=== PATIENT | female | born 1950 | race American Indian/Alaskan Native ===

== ENCOUNTER 2016-08-20 12:53 | Emergency (ER) | payer MEDICARE ==
[2016-08-20 13:44] VITALS: BP 170/96
--- NOTE | 2016-08-20 14:05 | Emergency Department Report ---
Chief Complaint: Chest Pain Stated Complaint: chest pain Time Seen by Provider: 08/20/16 13:57 - HPI History of Present Illness: 65-year-old female presents today with left-sided chest pain radiating to her back times greater than one month. Patient states that sore to touch. Denies shortness of breath, abdominal pain, nausea, vomiting. - ROS Review of Systems: Per HPI - Exam Vital Signs: Vital Signs 08/20/16 13:28 Temperature 98.0 F Pulse Rate 78 Respiratory 16 Rate Blood Pressure 170/96 O2 Sat by Pulse 98 Oximetry Physical Exam: General: 65-year-old female in no acute distress. Well-developed, well- nourished. CV: Regular rate and rhythm. Lungs: Clear to auscultation bilaterally. Chest wall: Positive for anterior chest wall tenderness MSE screening note: Focused history and physical exam performed. Due to findings the following was ordered: ED Disposition for MSE Condition: Stable Referrals: PRIMARY CARE, [Primary Care Provider] - 3-5 Days
--- NOTE | 2016-08-20 15:13 | XRay Report ---
ROUTINE CHEST, TWO VIEWS: HISTORY: chest pain. The trachea, heart, mediastinal contour, lung mensah and bony thorax are unremarkable. IMPRESSION: Unremarkable chest x-ray.
[2016-08-20 16:32] LABS: Eosinophils % (Auto) 1.7 % (0.0-4.3); Red Blood Count 4.84 M/mm3 (3.65-5.03)
[2016-08-20 19:07] LABS: Basophils % (Auto) 0.5 % (0.0-1.8); Hematocrit 41.2 % (30.3-42.9); Hemoglobin 13.5 gm/dl (10.1-14.3); Mean Corpuscular HGB Conc 33 % (30-34); Mean Corpuscular Hemoglobin 28 pg (28-32); Mean Corpuscular Volume 85 fl (79-97); Platelet Count 298 K/mm3 (140-440); Red Cell Distribution Width 15.9 % (13.2-15.2); White Blood Count 10.5 K/mm3 (4.5-11.0)
[2016-08-20 19:47] LABS: Creatine Kinase MB < 1.0 ng/mL (0.0-4.0)
[2016-08-20 19:50] LABS: Alanine Aminotransferase 20 units/L (7-56); Albumin 4.2 g/dL (3.9-5); Albumin/Globulin Ratio 1.2 %; Alkaline Phosphatase 72 units/L (35-129); Anion Gap 18 mmol/L; Bilirubin,Total 0.5 mg/dL (0.1-1.2); Blood Urea Nitrogen 7 mg/dL (7-17); Calcium 8.7 mg/dL (8.4-10.2); Carbon Dioxide 27 mmol/L (22-30); Chloride 100.2 mmol/L (98-107); Creatine Kinase 75 units/L (30-135); Glucose 104 mg/dL (65-100); Lipase 26 units/L (13-60); Potassium 3.9 mmol/L (3.6-5.0); Sodium 141 mmol/L (137-145); Total Protein 7.6 g/dL (6.3-8.2)
[2016-08-20 19:54] LABS: Bilirubin,Direct < 0.2 mg/dL (0-0.2); Bilirubin,Indirect 0.3 mg/dL
== END 2016-08-21 00:30 | disposition left against medical advice (07) ==
LOC: ED 12:53
DX: R07.9 Chest pain, unspecified (principal); Z53.21 Procedure and treatment not carried out due to patient leaving prior to being seen by health care provider
CPT/HCPCS: 36415; 71020; 80048; 80074; 82550; 82553; 83690; 84484; 85025; 93005; 93010

== ENCOUNTER 2016-08-22 10:15 | Inpatient (IN) | payer MEDICARE ==
[2016-08-22 10:44] LABS: Basophils % (Auto) 0.7 % (0.0-1.8); Hematocrit 39.8 % (30.3-42.9); Hemoglobin 12.9 gm/dl (10.1-14.3); Mean Corpuscular HGB Conc 33 % (30-34); Mean Corpuscular Hemoglobin 28 pg (28-32); Mean Corpuscular Volume 84 fl (79-97); Platelet Count 275 K/mm3 (140-440); Red Blood Count 4.71 M/mm3 (3.65-5.03); Red Cell Distribution Width 15.8 % (13.2-15.2); White Blood Count 8.8 K/mm3 (4.5-11.0)
[2016-08-22 10:58] LABS: Anion Gap 18 mmol/L; Blood Urea Nitrogen 7 mg/dL (7-17); Calcium 8.5 mg/dL (8.4-10.2); Carbon Dioxide 27 mmol/L (22-30); Chloride 104.8 mmol/L (98-107); Glucose 131 mg/dL (65-100); Potassium 4.6 mmol/L (3.6-5.0); Sodium 145 mmol/L (137-145)
[2016-08-22] MEDS ORDERED: ZOFRAN IV ONE (16:38)
[2016-08-22] MEDS ORDERED: MORPHINE IV ONE (16:38)
[2016-08-22] MEDS ORDERED: CATAPRES PO ONE (16:38)
[2016-08-22] MEDS ORDERED: ASPIRIN PO ONE (16:38)
--- NOTE | 2016-08-22 17:05 | Emergency Department Report ---
ED Chest Pain HPI - General Chief Complaint: Chest Pain Stated Complaint: CHEST AND BACK PAIN Time Seen by Provider: 08/22/16 16:27 Source: patient, old records reviewed Mode of arrival: Ambulatory Limitations: No Limitations - History of Present Illness Initial Comments: 65-year-old female with a past medical history of hypothyroidism status post thyroidectomy, elevated cholesterol, and hypertension presents to the hospital complaints of chest pain 1 month. Pain is upper left chest radiating to the back. Described as intermittent aching pain without aggravating or alleviating factors. Rated 8/10 in intensity. Denies associated symptoms including shortness of breath, nausea, vomiting, diaphoresis, calf tenderness, edema, history of PE/DVT, recent travel, smoking history, or family history of CAD. Last stress test was "a long time ago" and greater 5 years ago. Patient does not have a primary care doctor. Patient did not have her medication yesterday or today but is otherwise compliant. Patient presented here August for a left prior to M.D. evaluation. Cardiac enzymes chest x-ray negative at the time Severity scale (0 -10): 5 - Related Data Home Medications Medication Instructions Recorded Confirmed Last Taken AtorvaSTATin [Lipitor] 20 mg PO QHS 08/22/16 08/22/16 Unknown Levothyroxine [Synthroid] 150 mg PO QAM 08/22/16 08/22/16 08/22/16 Metoprolol Tartrate [Lopressor] 50 mg PO QHS 08/22/16 08/22/16 08/19/16 Allergies Allergy/AdvReac Type Severity Reaction Status Date / Time No Known Allergies Allergy Unverified 08/20/16 13:44 ISRAEL score - Israel Score Age > 65: (1) Yes Aspirin use within the Past 7 Days: (0) No 3 or more CAD Risk Factors: (1) Yes 2 or more Angina events in past 24 hrs: (1) Yes Known CAD with more than 50% Stenosis: (0) No Elevated Cardiac Markers: (0) No ST Deviation Greater than 0.5mm: (0) No ISRAEL Score: 3 ED Review of Systems ROS: Stated complaint: CHEST AND BACK PAIN Other details as noted in HPI Comment: All other systems reviewed and negative Other: Constitutional: No fevers chills Eyes: No eye pain visual changes ENT: No ear pain or throat pain Neck: Denies pain Respiratory: Denies cough wheezing shortness of breath Cardiovascular: As per HPI GI: Denies abdominal pain, nausea, vomiting, diarrhea : Denies dysuria Musculoskeletal: Denies back pain Skin: Denies rash, lesions, erythema Neurologic: Denies headache, numbness, weakness Psychiatric: Denies suicidal ideation, hallucinations ED Past Medical Hx - Past Medical History Previous Medical History?: Yes Hx Hypertension: Yes Additional medical history: thyroid disorder; high cholosterol - Surgical History Past Surgical History?: Yes Additional Surgical History: ; thyroid ectomy - Social History Smoking Status: Never Smoker - Medications Home Medications: Home Medications Medication Instructions Recorded Confirmed Last Taken Type AtorvaSTATin [Lipitor] 20 mg PO QHS 08/22/16 08/22/16 Unknown History Levothyroxine [Synthroid] 150 mg PO QAM 08/22/16 08/22/16 08/22/16 History Metoprolol Tartrate [Lopressor] 50 mg PO QHS 08/22/16 08/22/16 08/19/16 History ED Physical Exam - General Limitations: No Limitations - Other Other exam information: General: No limitations, patient is alert in no acute distress Head exam: Atraumatic, normocephalic Eyes exam: Normal appearance, pupils equal reactive to light, extraocular movements intact ENT: Moist mucous membrane, normal oropharynx Neck exam: Normal inspection, full range of motion, no meningismus nontender Respiratory exam: Clear to auscultation bilateral, no wheezes, rales, crackles. Left upper chest wall tenderness the patient states is different from her intermittent chest pain she's been experiencing Cardiovascular: Normal rate and rhythm, normal heart sounds Abdomen: Soft, nondistended, and nontender, with normal bowel sounds, no rebound, or guarding Extremity: Full range of motion normal inspection no deformity, no calf tenderness or edema Back: Normal Inspection, full range of motion, no tenderness Neurologic: Alert, oriented x3, cranial nerves intact, no motor or sensory deficit Psychiatric: normal affect, normal mood Skin: Warm, dry, intact ED Course Vital Signs 08/22/16 08/22/16 08/22/16 10:29 14:45 14:46 Temperature 98.7 F 98.2 F Pulse Rate 72 72 Respiratory 16 20 14 Rate Blood Pressure 174/97 Blood Pressure 189/96 [Left] O2 Sat by Pulse 100 96 99 Oximetry 08/22/16 14:49 Temperature Pulse Rate 75 Respiratory Rate Blood Pressure Blood Pressure [Left] O2 Sat by Pulse Oximetry - Reevaluation(s) Reevaluation #1: 08/22/16 17:15 Aspirin, morphine, Zofran, and clonidine 0.1 mg ordered ED Medical Decision Making - Lab Data Result diagrams: 08/22/16 10:35 08/22/16 10:35 Lab Results 08/22/16 08/22/16 08/22/16 Range/Units 10:35 10:35 13:16 WBC 8.8 (4.5-11.0) K/mm3 RBC 4.71 (3.65-5.03) M/mm3 Hgb 12.9 (10.1-14.3) gm/dl Hct 39.8 (30.3-42.9) % MCV 84 (79-97) fl MCH 28 (28-32) pg MCHC 33 (30-34) % RDW 15.8 H (13.2-15.2) % Plt Count 275 (140-440) K/mm3 Lymph % (Auto) 28.7 (13.4-35.0) % [place] % (Auto) 6.4 (0.0-7.3) % Eos % (Auto) 2.0 (0.0-4.3) % Baso % (Auto) 0.7 (0.0-1.8) % Lymph # 2.5 (1.2-5.4) K/mm3 [place] # 0.6 (0.0-0.8) K/mm3 Eos # 0.2 (0.0-0.4) K/mm3 Baso # 0.1 (0.0-0.1) K/mm3 Seg Neutrophils % 62.2 (40.0-70.0) % Seg Neutrophils # 5.4 (1.8-7.7) K/mm3 Sodium 145 (137-145) mmol/L Potassium 4.6 (3.6-5.0) mmol/L Chloride 104.8 (98-107) mmol/L Carbon Dioxide 27 (22-30) mmol/L Anion Gap 18 mmol/L BUN 7 (7-17) mg/dL Creatinine 0.5 L (0.7-1.2) mg/dL Estimated GFR > 60 ml/min BUN/Creatinine Ratio 14.00 % Glucose 131 H (65-100) mg/dL Calcium 8.5 (8.4-10.2) mg/dL Troponin T < 0.010 < 0.010 (0.00-0.029) ng/mL - EKG Data -: EKG Interpreted by Me (nsr rate 78, non specific st t wave abnl) - Medical Decision Making Overall I believe patient's chest pain is atypical however, patient has cardiac risk factors distress is related 5 years ago. Patient to admit for stress testing to rule out CAD - Differential Diagnosis chest wall pain, NH, unstable angina, PE, dissection, MSK pain Critical Care Time: No Critical care attestation.: If time is entered above; I have spent that time in minutes in the direct care of this critically ill patient, excluding procedure time. ED Disposition Clinical Impression: Chest pain, HTN (hypertension), Elevated cholesterol Disposition: OP ADMITTED IP TO THIS HOSP Is pt being admited?: Yes Does the pt Need Aspirin: Yes Condition: Stable Time of Disposition: 16:49 (Dr Aparicio/hosp)
--- NOTE | 2016-08-22 17:26 | Admit Criteria Form ---
Admission Criteria Documentation: CHEST PAIN Clinical Indications for Admission to Inpatient Care (Place 'X' for any and all applicable criteria): Admission is indicated for chest pain and ANY ONE of the following(1)(2)(3)(4)(5 ): [ ]I. Angina with acute coronary syndrome (Also use Myocardial Infarction or Angina guideline) [ ]II. Hemodynamic instability [X]III. Angina needing acute intervention as indicated by ALL of the following( 11)(12): [X]a) Unstable angina is present as indicated by angina that is ANY ONE of the following: [ ]i) New onset [ ]ii) Nocturnal [X]iii) Prolonged at rest [ ]iv) Progressive [X]b) Angina warrants acute intervention as indicated by ANY ONE of the following: [X]i) Recurrent angina (e.g, not responding as previously to treatment) [ ]ii) Angina at rest or with low-level activities despite initial medical therapy [ ]iii) New or presumably new ST-segment depression on ECG [ ]iv) Signs or symptoms of heart failure (eg, dyspnea, pulmonary edema) [ ]v) New or worsening mitral regurgitation [ ]vi) Hemodynamic instability [ ]vii) Dangerous arrhythmia (eg, sustained ventricular tachycardia) [ ]viii) History of percutaneous coronary intervention within 6 months [ ]ix) History of coronary artery bypass graft surgery [X]x) ISRAEL risk score of 2 or greater[A] [ ]xi) History of Diabetes(14) [ ]xii) High-risk cardiac ischemia findings on noninvasive testing (e.g, echocardiogram, treadmill testing, nuclear scan) [ ]xiii) Chronic renal insufficiency (ie, estimated GFR less than 60 mL/min/1.732m) [ ]xiv) Left ventricular ejection fraction less than 40% [ ]IV. Evidence of [place] (eg, cardiac biomarkers positive, ST-segment elevation on ECG) also use Myocardial Infarction Criteria Form. [ ]V. Pulmonary edema [ ]. Respiratory distress [ ]VII. Chest pain indicative of serious diagnosis other than coronary artery disease (eg, aortic dissection) [ ]VIII. Contraindications and/or Inappropriate clinical situations for Observational Care in patients with Chest Pain, when ANY ONE of the following is required: [ ]a) Patient with risk factor for pulmonary embolism, acute coronary syndrome and myocardial infarction (18) [ ]b) Patient with Pulmonary embolism require an average LOS of 4.3 days, therefore emergency department observation management is inappropriate 18,23 [ ]c) Painful condition/s in the elderly, have the highest rate of recidivism after emergency department observation management (10.8%) 20,21,22 [ ]d) Elevated cardiac biomarker requires intensive and exhaustive care (19) [ ]IX. General contraindications and/or Inappropriate clinical situations for Observational Care in patients with Chest Pain, when ANY ONE of the following is required: [ ]a) Prediction of prolongation of LOS based on ANY ONE of the following may be considered as a contraindication for observational care 2, 3, 4, 5, 6, 7, 8, 9, 10, 11 [ ]i) Age > 65 yrs. [ ]ii) Patient arriving by ambulance [ ]iii) Patient with high acuity [ ]iv) Patient requiring vital sign monitoring [ ]v) Patient on IV medication [ ]b) Systolic blood pressures 180mmHg 3,12 [ ]c) Patient with altered mental status including delirium and other alteration of consciousness, (3) [ ]d) Patient whose discharge disposition will be to a long-term home or rehabilitation home should not be managed in Emergency Department Observation Unit. CMS rule requires 3 days hospital stay before such placement. 3,13 [ ]e) Patient with failure to thrive due to broad array of etiologies 3,16,17 [ ]f) Inability to ambulate 3,14 Extended stay beyond goal length of stay may be needed for (1)(28): [ ]a) Specific condition diagnosed after evaluation (eg, pulmonary embolism, aortic dissection) [ ]b) Unstable angina [ ]c) Continued suspicion of acute coronary syndrome with inability to complete needed cardiac evaluation (eg, patient clinically unable to undergo stress testing) [ ]d) Myocardial infarction (Contents from ANGINA and CHEST PAIN clinical indications for admission to inpatient care have been integrated in this form) The original [employer] content created by [employer] has been revised. The portions of the content which have been revised are identified through the use of italic text or in bold, and [employer] has neither reviewed nor approved the modified material. All other unmodified content is copyright [employer]. Please see references footnoted in the original [employer] edition 2016 Admission Criteria Met: Yes
--- NOTE | 2016-08-22 19:12 | History and Physical Report ---
History of Present Illness Date of examination: 08/22/16 Date of admission: 08/22/16 17:03 Chief complaint: CP History of present illness: Patient is a 65 yo woman with a h/o thyroid d/o s/p thyroidectomy, dlp and htn who presents with progressive worse left sided achy dull moderately intense intermittent radiating to back chest pains that started about 1 month ago, she came to [facility] 2 days ago but left prior to physician evaluation. There is no n /v/diaphoresis, fevers, cough. She denies any shortness of breath. She did passed a gallstone of the four-day fast. Past History Past Medical History: other (as hpi) Past Surgical History: Other (thyroidectomy) Social history: full code. denies: smoking, alcohol abuse, prescription drug abuse, IV drug use Family history: no significant family history Medications and Allergies Allergies Allergy/AdvReac Type Severity Reaction Status Date / Time No Known Allergies Allergy Unverified 08/20/16 13:44 Home Medications Medication Instructions Recorded Confirmed Last Taken Type AtorvaSTATin [Lipitor] 20 mg PO QHS 08/22/16 08/22/16 Unknown History Levothyroxine [Synthroid] 150 mg PO QAM 08/22/16 08/22/16 08/22/16 History Metoprolol Tartrate [Lopressor] 50 mg PO QHS 08/22/16 08/22/16 08/19/16 History Active Meds: Active Medications Aspirin (Baby Aspirin) 81 mg PO QDAY SUNITHA Atorvastatin Calcium (Lipitor) 20 mg PO QHS [facility] Enoxaparin Sodium (Lovenox) 40 mg SUB-Q QDAY SUNITHA Levothyroxine Sodium (Synthroid) 150 mcg PO DAILY@0600 SUNITHA Metoprolol Tartrate (Lopressor) 50 mg PO QHS SUNITHA Review of Systems All systems: negative (as HPI and all other ROS reviewed and negative.) Exam - Physical Exam Narrative exam: GEN: WDWN, NAD, AWAKE, ALERT, ORIENTATED 3 HEENT: NCAT, PERRL, EOMI, OP CLEAR NECK: SUPPLE, NO THYROMEGALY, NO JVD, NO LAD CVS: RRR, NORMAL S1S2 LUNGS/CHEST: CTA B, NORMAL CHEST EXPANSION B, GOOD AIR ENTRY B ABD: SOFT NTND, GBS, NO REBOUND OR GUARDING EXT/SKIN: NO SIGNIFICANT EDEMA OR RASH MSK: FROM X 4 EXTREMITIES NEURO: CN 2-12 GROSSLY INTACT, NO FOCAL DEFICITS PSY: CALM - Constitutional Vitals: Temp Pulse Resp BP Pulse Ox 98.2 F 76 16 175/108 97 08/22/16 14:45 08/22/16 17:41 08/22/16 17:41 08/22/16 17:41 08/22/16 17:41 Results - Labs CBC & Chem 7: 08/22/16 10:35 08/22/16 10:35 - Imaging and Cardiology EKG: image reviewed Assessment and Plan Patient is a 65 yo woman with a h/o thyroid d/o s/p thyroidectomy, dlp and htn who presents with progressive worse left sided achy dull moderately intense intermittent radiating to back chest pains that started about 1 month ago, she came to [facility] 2 days ago but left prior to physician evaluation. There is no n /v/diaphoresis, fevers, cough. She denies any shortness of breath. She did passed a gallstone of the four-day fast. 1. Chest pain: Serial cardiac enzymes, stress test a.m. add aspirin 2. Accelerated hypertension: Beta belem 3. Dyslipidemia: Statins 4. History of Thyroid disorder
[2016-08-22] MEDS ORDERED: BABY ASPIRIN ONE (20:11)
[2016-08-22] MEDS: BABY ASPIRIN PO SCH (20:29)
[2016-08-22] MEDS ORDERED: LOPRESSOR PO SCH (22:00)
[2016-08-23] MEDS ORDERED: SYNTHROID PO SCH (06:00)
[2016-08-23 07:59] LABS: Hematocrit 38.3 % (30.3-42.9); Hemoglobin 12.4 gm/dl (10.1-14.3); Mean Corpuscular HGB Conc 32 % (30-34); Mean Corpuscular Hemoglobin 27 pg (28-32); Mean Corpuscular Volume 84 fl (79-97); Platelet Count 266 K/mm3 (140-440); Red Blood Count 4.57 M/mm3 (3.65-5.03); Red Cell Distribution Width 15.5 % (13.2-15.2); White Blood Count 8.9 K/mm3 (4.5-11.0)
[2016-08-23] MEDS ORDERED: LEXISCAN IV ONE (08:06)
[2016-08-23 08:10] LABS: Blood Urea Nitrogen 9 mg/dL (7-17); Calcium 8.5 mg/dL (8.4-10.2); Carbon Dioxide 28 mmol/L (22-30); Glucose 125 mg/dL (65-100); Potassium 4.2 mmol/L (3.6-5.0); Sodium 144 mmol/L (137-145)
[2016-08-23 08:12] LABS: Anion Gap 16 mmol/L
[2016-08-23 09:58] VITALS: BP 135/75
[2016-08-23] MEDS ORDERED: LOVENOX SUB-Q SCH (10:00)
[2016-08-23] MEDS: BABY ASPIRIN PO SCH (12:09)
--- NOTE | 2016-09-02 08:39 | Query- Chest Pain ---
Jazmyn Harris Date:__09/02/16 Door Paneler/CDS:_Joceline/Jim Basilio Phone#:_[phone] Exercise your independent professional judgment when responding to query. Questions asked do not imply a particular answer is desired or expected. We greatly appreciate your clarification on this issue. Clinical Documentation States: 65 Y/O Female admitted on 08/22/16 with History of thyroid disorder s/p thyroidectomy presents with progressive left sided chest pain radiating to the back. Clinical Findings Show: Stress test negative, troponin within normal limits x3 Please document the etiology of Chest Pain: [ ] Myocardial Infarction [ ] Pneumonia [ ] Mediastinitis [ ] Costochondritis [ ] Pulmonary Embolism [ ] Coronary Artery Disease [ x] GERD [ ] Other: [ ] Comment/Explanation: Present on Admission: [ x] Yes (Y) [ ] Clinically undeterminable (W) [ ] No(N) Please document response in your Progress Notes and/or Discharge Summary and indicate if the condition was present on admission. ALEXANDRA
== END 2016-08-23 18:12 | disposition home or self-care (01) | DRG 392 ==
LOC: ED 10:15 → 4A 17:03
PROVIDERS: ADMIT Internal Medicine; ATTEND Internal Medicine
DX: K21.9 Gastro-esophageal reflux disease without esophagitis (principal); E03.9 Hypothyroidism, unspecified; I10 Essential (primary) hypertension; E78.5 Hyperlipidemia, unspecified; Z90.89 Acquired absence of other organs
CPT/HCPCS: 36415; 78452; 80048; 84484; 85025; 85027; 85379; 93005; 93010; 93017; A9270-GY; A9502; J2270; J2405; J2785

== ENCOUNTER 2020-08-11 12:16 | Emergency (ER) | payer MEDICARE ==
--- NOTE | 2020-08-11 13:13 | XRay Report ---
CHEST PA AND LATERAL VIEWS INDICATION: Chest Pain. COMPARISON: 08/20/2016 FINDINGS: Support devices: None Heart: Normal and unchanged Lungs/Pleura: No acute pulmonary or pleural findings. IMPRESSION: 1. No significant abnormality and no interval change. Signer Name: Jann Burnette MD Signed: 08/11/2020 1:09 PM Workstation Name: [id number]
[2020-08-11 14:20] LABS: Basophils % (Auto) 0.5 % (0.0-1.8); Eosinophils # (Auto) 0.2 K/mm3 (0.0-0.4); Eosinophils % (Auto) 2.8 % (0.0-4.3); Hematocrit 39.4 % (30.3-42.9); Hemoglobin 13.1 gm/dl (10.1-14.3); Lymphocytes % (Auto) 25.4 % (13.4-35.0); Mean Corpuscular HGB Conc 33 % (30-34); Mean Corpuscular Volume 89 fl (79-97); Monocytes # (Auto) 0.5 K/mm3 (0.0-0.8); Monocytes % (Auto) 6.6 % (0.0-7.3); Platelet Count 276 K/mm3 (140-440); Red Cell Distribution Width 15.9 % (13.2-15.2)
[2020-08-11 14:40] LABS: BUN/Creatinine Ratio 16; Blood Urea Nitrogen 13 mg/dL (7-17); Calcium 8.9 mg/dL (8.4-10.2); Hemolysis Index 5
--- NOTE | 2020-08-11 20:30 | Emergency Department Report ---
ED Chest Pain HPI - General Chief Complaint: Chest Pain Stated Complaint: CHEST PAIN Time Seen by Provider: 08/11/20 20:13 Source: patient Mode of arrival: Ambulatory Limitations: No Limitations - History of Present Illness Initial Comments: 69-year-old female, history of hypertension, diabetes, thyroid disease, presents to ED with right-sided chest pain x3 days. Patient denies any fever, cough, shortness of breath. Patient states pain is sharp in nature, worse with palpation and movement of torso. Patient denies any pleuritic component. She denies any leg pain or swelling. Patient reports some relief of the pain with Tylenol. MD Complaint: chest pain -: days(s) (3) Onset: during rest Pain Location: right chest Pain Radiation: none Severity: moderate Quality: sharp Consistency: intermittent Improves With: remaining still Worsens With: palpation, movement re: denies: nausea, vomting, diaphoresis, dyspnea Other Symptoms: denies: cough, fever, leg swelling Treatments Prior to Arrival: other (Tylenol) - Related Data Home Medications Medication Instructions Recorded Confirmed Last Taken AtorvaSTATin [Lipitor] 20 mg PO QHS 08/22/16 08/22/16 Unknown Levothyroxine [Synthroid] 150 mg PO QAM 08/22/16 08/22/16 08/22/16 Metoprolol Tartrate [Lopressor] 50 mg PO QHS 08/22/16 08/22/16 08/19/16 Previous Rx's Medication Instructions Recorded Last Taken Type Naproxen [Naprosyn] 500 mg PO BID #20 tablet 08/11/20 Unknown Rx Allergies Allergy/AdvReac Type Severity Reaction Status Date / Time No Known Allergies Allergy Unverified 08/20/16 13:44 Heart Score - HEART Score History: Slightly suspicious EKG: Normal Age: 45-65 Risk factors: 1-2 risk factors Troponin: < normal limit HEART Score: 2 ED Review of Systems ROS: Stated complaint: CHEST PAIN Other details as noted in HPI Comment: All other systems reviewed and negative Constitutional: denies: chills, fever Respiratory: denies: cough, shortness of breath Cardiovascular: chest pain Gastrointestinal: denies: nausea, vomiting Musculoskeletal: other (Denies leg pain or swelling) ED Past Medical Hx - Past Medical History Previous Medical History?: Yes Hx Hypertension: Yes Hx Diabetes: Yes (diet controlled) Additional medical history: thyroid disorder; high cholosterol - Surgical History Past Surgical History?: Yes Additional Surgical History: ; thyroid ectomy. hysterectomy - Social History Smoking Status: Never Smoker Substance Use Type: None - Medications Home Medications: Home Medications Medication Instructions Recorded Confirmed Last Taken Type AtorvaSTATin [Lipitor] 20 mg PO QHS 08/22/16 08/22/16 Unknown History Levothyroxine [Synthroid] 150 mg PO QAM 08/22/16 08/22/16 08/22/16 History Metoprolol Tartrate [Lopressor] 50 mg PO QHS 08/22/16 08/22/16 08/19/16 History Naproxen [Naprosyn] 500 mg PO BID #20 tablet 08/11/20 Unknown Rx ED Physical Exam - General Limitations: No Limitations General appearance: alert, in no apparent distress - Head Head exam: Present: atraumatic, normocephalic - Eye Eye exam: Present: normal appearance, EOMI - ENT ENT exam: Present: mucous membranes moist - Neck Neck exam: Present: normal inspection - Respiratory Respiratory exam: Present: normal lung sounds bilaterally, chest wall tenderness (Right anterior chest wall). Absent: respiratory distress - Cardiovascular Cardiovascular Exam: Present: regular rate, normal rhythm - GI/Abdominal GI/Abdominal exam: Present: soft. Absent: distended, tenderness - Extremities Exam Extremities exam: Present: normal inspection. Absent: pedal edema, calf tenderness - Neurological Exam Neurological exam: Present: alert, oriented X3 - Psychiatric Psychiatric exam: Present: normal affect, normal mood - Skin Skin exam: Present: warm, dry, intact, normal color ED Course Vital Signs 08/11/20 08/11/20 12:36 20:58 Temperature 98.3 F 98.1 F Pulse Rate 83 74 Respiratory 16 18 Rate Blood Pressure 156/83 Blood Pressure 130/83 [Left] O2 Sat by Pulse 98 100 Oximetry ISRAEL score - Israel Score Age > 65: (1) Yes Aspirin use within the Past 7 Days: (0) No 3 or more CAD Risk Factors: (1) Yes 2 or more Angina events in past 24 hrs: (1) Yes Known CAD with more than 50% Stenosis: (0) No Elevated Cardiac Markers: (0) No ST Deviation Greater than 0.5mm: (0) No ISRAEL Score: 3 ED Medical Decision Making - Lab Data Result diagrams: 08/11/20 13:01 08/11/20 13:01 - EKG Data -: EKG Interpreted by Me EKG shows normal: sinus rhythm, axis, intervals, QRS complexes Rate: normal - EKG Data Interpretation: no acute changes, nonspecific ST-T wave vee - Radiology Data Radiology results: report reviewed, image reviewed - Medical Decision Making 69-year-old female with right-sided chest pain x3 days. EKG shows no ST changes, troponin negative x3. Chest x-ray is normal. O2 sats are normal, patient is in no respiratory distress. Patient does have some chest wall tenderness on exam but states her pain. Will discharge home at this time. Outpatient follow-up advised. Return precautions given. Information will be faxed to [facility] for cardiology follow-up. - Differential Diagnosis ACS, pneumonia, chest wall pain Critical care attestation.: If time is entered above; I have spent that time in minutes in the direct care of this critically ill patient, excluding procedure time. ED Disposition Clinical Impression: Chest wall pain Disposition: TO HOME OR SELFCARE Is pt being admited?: No Condition: Stable Instructions: Chest Wall Pain, [id number], Nonspecific Chest Pain, Adult, Chest Pain (ED) Prescriptions: Naproxen [Naprosyn] 500 mg PO BID #20 tablet Referrals: PRIMARY CARE, [Primary Care Provider] - 3-5 Days Time of Disposition: 20:31
[2020-08-11 20:59] VITALS: BP 130/83
== END 2020-08-11 21:25 | disposition home or self-care (01) ==
LOC: ED 12:16
DX: R07.89 Other chest pain (principal); I10 Essential (primary) hypertension; E11.9 Type 2 diabetes mellitus without complications; Z90.89 Acquired absence of other organs; Z98.890 Other specified postprocedural states; Z79.899 Other long term (current) drug therapy
CPT/HCPCS: 36415; 71046; 80048; 83880; 84484; 85025; 93005